=== PATIENT | male | born 1960 | race Caucasian/White ===

== ENCOUNTER 2021-02-19 12:15 | Emergency (ER) | payer OTHER | END 2021-02-19 18:41 | disposition short-term general hospital (02) | LOC: ED 12:15 | DX: S32.011A Stable burst fracture of first lumbar vertebra, initial encounter for closed fracture (principal); R91.8 Other nonspecific abnormal finding of lung field; R16.0 Hepatomegaly, not elsewhere classified; V86.59XA Driver of other special all-terrain or other off-road motor vehicle injured in nontraffic accident, initial encounter; Z20.822 Contact with and (suspected) exposure to COVID-19; F17.200 Nicotine dependence, unspecified, uncomplicated | CPT/HCPCS: 70450; 71260; 72125; 74177; 80053; 82150; 82550; 83690; 85025; 86850; 86900; 86901; 96374; 96375; 96376; 99284-25; C9803; J1170; J2405; Q9967; U0003 ==